=== PATIENT | female | born 1985 | race Hispanic/Latino ===

== ENCOUNTER 2017-08-19 09:08 | Emergency (ER) | payer SELFPAY ==
[~2017-08-19] VITALS: Ht 152.4 cm; Wt 80.0 kg
[~2017-08-19 09:08] MED LIST: FAMVIR500 MG PO; LORTAB 5 OR; MEDDOSEPAK OR; ZITHROMAX500 MG OR
[2017-08-19] MEDS ORDERED: VOLTAREN75 MG PO (10:37)
[2017-08-19 11:05] VITALS: BP 135/89
== END 2017-08-19 11:05 | disposition home or self-care (01) | DRG 563 ==
LOC: ED 09:08
DX: S39.012A Strain of muscle, fascia and tendon of lower back, initial encounter (principal); X50.3XXA Overexertion from repetitive movements, initial encounter; Y93.E5 Activity, floor mopping and cleaning